=== PATIENT | female | born 1955 | race Caucasian/White ===

== ENCOUNTER 2021-06-22 18:10 | Inpatient (IN) ==
[2021-06-22] MEDS ORDERED: levETIRAcetam 1000MG IVPREMIX 1,000 MG/100 ML BAG IVPB ONE (20:27)
[2021-06-22 20:36] LABS: ABS Eosinophils 0.3 10^3/ul (0-0.6); ABS Lymphocytes 3.1 10^3/ul (1.0-4.8); ABS Monocytes 0.3 10^3/ul (0-0.8); ABS Neutrophils 2.4 10^3/ul (1.5-7.7); Eosinophil % 4.2 %; Hematocrit 41 % (35-47); Hemoglobin 14.5 g/dL (12.0-16.0); Lymphocyte % 51.1 %; Mean Corpuscular HGB Conc 35 g/dL (31-36); Mean Corpuscular Hemoglobin 33 pg (27-31); Mean Corpuscular Volume 95 fL (80-97); Mean Platelet Volume 7.8 fL (7.4-10.4); Nucleated Red Blood Cells % 0.1; Platelet Count 209 10^3/uL (150-450); Red Blood Count 4.36 10^6 /uL (3.70-4.87); Red Cell Distribution Width 13 % (10-15); White Blood Count 6.1 10^3/uL (3.5-10.8)
[2021-06-22 20:55] LABS: Albumin 4.2 g/dL (3.2-5.2); Albumin/Globulin Ratio 1.7 (1-3); Calcium 9.5 mg/dL (8.6-10.3); Globulin 2.5 g/dL (2-4); Magnesium 2.4 mg/dL (1.9-2.7); Potassium 3.8 mmol/L (3.5-5.0); Total Bilirubin 0.4 mg/dL (0.2-1.0); Total Protein 6.7 g/dL (6.4-8.9); eGFR CKD-EPI 74.9 (>60)
[2021-06-22 21:20] LABS: TSH Ultra Thyroid Stim Horm 1.83 mcIU/mL (0.34-5.60)
[2021-06-22] MEDS ORDERED: NS 0.9% 1000 ml BAG 1,000 ML IV ONE (21:54)
[2021-06-22 22:07] LABS: Activated Partial Thrombo Time 34.8 seconds (26.0-38.0); INR 1.01 (0.86-1.15)
[2021-06-22] MEDS ORDERED: NS 0.9% 1000 ml BAG 1,000 ML IV SCH (22:45)
[2021-06-23 07:07] LABS: Calcium 8.5 mg/dL (8.6-10.3); Potassium 3.9 mmol/L (3.5-5.0); eGFR CKD-EPI 67.3 (>60)
[2021-06-23] MEDS: levETIRAcetam 1000MG IVPREMIX 1,000 MG/100 ML BAG IVPB SCH ×2 (08:16→20:03)
[2021-06-23] MEDS ORDERED: Iohexol 350 (CONTRAST) 500 ML MDV IV ONE (09:33)
[2021-06-24 06:47] LABS: ABS Basophils 0.1 10^3/ul (0-0.2); ABS Eosinophils 0.3 10^3/ul (0-0.6); ABS Lymphocytes 2.9 10^3/ul (1.0-4.8); ABS Monocytes 0.3 10^3/ul (0-0.8); ABS Neutrophils 1.6 10^3/ul (1.5-7.7); Eosinophil % 6.6 %; Hematocrit 41 % (35-47); Hemoglobin 14.4 g/dL (12.0-16.0); Lymphocyte % 56.3 %; Mean Corpuscular HGB Conc 35 g/dL (31-36); Mean Corpuscular Hemoglobin 34 pg (27-31); Mean Corpuscular Volume 96 fL (80-97); Mean Platelet Volume 8.1 fL (7.4-10.4); Platelet Count 193 10^3/uL (150-450); Red Blood Count 4.28 10^6 /uL (3.70-4.87); Red Cell Distribution Width 13 % (10-15); White Blood Count 5.2 10^3/uL (3.5-10.8)
[2021-06-24 06:53] LABS: INR 1.12 (0.86-1.15)
[2021-06-24 06:59] LABS: Calcium 9.5 mg/dL (8.6-10.3); Potassium 3.9 mmol/L (3.5-5.0); eGFR CKD-EPI 74.9 (>60)
[2021-06-24] MEDS: levETIRAcetam 1000MG IVPREMIX 1,000 MG/100 ML BAG IVPB SCH (09:08)
[2021-06-24 11:26] VITALS: BP 109/68
== END 2021-06-24 13:43 | disposition home or self-care (01) | DRG 65 ==
LOC: EDHOLD 18:10 → ED 18:10 → SUATTDRO 21:36 → MEDTELE 23:41 → SUATTDRO 06-23 16:55
PROVIDERS: ADMIT Internal Medicine; ATTEND Hospitalist